=== PATIENT | female | born 1970 ===

== ENCOUNTER 2020-07-28 07:42 | Day surgery (SDC) | payer MEDICAID, SELFPAY ==
--- NOTE | 2020-07-28 08:08 | HO.ANESPROP2 ---
HPI - Anesthesia Eval Consult details Narrative: 49F for colonoscopy PMFSH Past Medical History Medical History Constipation Peterson-Danlos syndrome GERD (gastroesophageal reflux disease) History of pneumonia Nausea & vomiting Poor intravenous access PTSD (post-traumatic stress disorder) Surgical History Surgical History Hx of colonoscopy Social History Social History Advance Directives: No Advance Directives Information Provided: No Meds Allergies Allergy/AdvReac Type Severity Reaction Status Date / Time mold Allergy Unknown Uncoded 05/03/12 00:00 Home Medications Medication Instructions Recorded Confirmed Type cromolyn 2 ml INHALATION QID 07/23/20 07/23/20 History Exam Exam Date and Time: July 28, 2020 0808 Airway Mallampati Class: I TM Dist: >3cm Neck ROM: Full Loose/Missing/Broken Teeth: No Heart: rrr Lungs: nl Other: ao Assessment and Plan Assessment Anesthesia Assessment: Anesthesia Plan Discussed and Chart Reviewed Final Anesthetic Review NPO: Yes ASA Class: III Final Preanesthetic Review: No Changes in Pt Med Stat, Meds/Allgs Chart Reviewed, Consent Obtained/Reviewed and Anes Risks/Benef Reviewed Patient Risk: Intermediate Procedure Risk: Low Anesthetic Plan Anesthetic Plan: MAC: Disposition: Standard PACU
[2020-07-28 08:29] VITALS: BP 110/80; PULSE 79; RESP 18; TEMP 37.2; O2SAT 99
[2020-07-28 10:13] VITALS: BP 94/65; PULSE 90; RESP 12; TEMP 36.2; O2SAT 99
--- NOTE | 2020-07-28 10:18 | PM.OP ---
Brief Operative Note Date of Service: 07/28/20 Pre-op diagnosis: GERD, Screening Post-op diagnosis: other (Small hiatal hernia, mild gastritis, R/O Celiac disease, R/O EOE, colon polyp) Procedure: EGD with biopsies, Colonoscopy to cecum with biopsy and removal of polyp Surgeon: Lee Balbuena Anesthesia: MAC Estimated blood loss (mL): 4.0 Pathology: other (A. Descending duodenum B. Gastric antrum C. Esophagus at 25 cm D. Colon polyp at 60cm) Condition: stable Disposition: PACU
[2020-07-28 10:28] VITALS: BP 104/69; PULSE 79; RESP 16; TEMP 36.2; O2SAT 99
--- NOTE | 2020-07-28 10:50 | HO.POSTANES ---
Post Anesthesia Evaluation Post Anesthesia Evaluation Vital Signs: Vital Signs Temp Pulse Resp BP Pulse Ox 07/28/20 10:28 97.2 F 79 16 104/69 99 07/28/20 10:13 97.2 F 90 12 94/65 99 07/28/20 08:29 98.9 F 79 18 110/80 99 Anesthesia: Monitored Mental Status: Awake Pain Control: Satisfactory Nausea/Vomiting: None Hydration: Adequate Anesthesia-Related Issues: No Anes. Related Issues
--- NOTE | 2020-07-28 10:54 | OP_ITS ---
SURGEON: Lee Balbuena MD INDICATIONS: The patient presents for evaluation of intermittent gastroesophageal reflux, nausea, and vomiting, as well as colorectal cancer screening. Full consent has been obtained from her for this, including risks of bleeding and perforation. PREOPERATIVE DIAGNOSIS: Nausea, vomiting, gastroesophageal reflux, and colorectal cancer screening. POSTOPERATIVE DIAGNOSIS: Nausea, vomiting, gastroesophageal reflux, and colorectal cancer screening, small hiatal hernia, gastritis, rule out celiac disease, rule out eosinophilic esophagitis, small colon polyp, internal hemorrhoids. PROCEDURE PERFORMED: Esophagogastroduodenoscopy with biopsies and colonoscopy to the cecum with biopsy and removal of polyp. ESTIMATED BLOOD LOSS: COMPLICATIONS: ANESTHESIA: Monitored anesthesia care. ASSISTANTS: SPECIMENS: DESCRIPTION OF PROCEDURE: The patient was placed in the left lateral decubitus position. The Olympus video gastroscope was passed in the posterior oropharynx and upper esophagus under direct vision. The scope was passed slowly to the distal esophagus. The gastroesophageal junction appeared at 36 cm. This area appeared normal without any sign of esophagitis nor Damon's esophagus. There was a small hiatal hernia. The scope was advanced to pylorus and duodenum cannulated to the descending portion. The duodenum including the bulb appeared normal without mass or ulceration. Biopsies were obtained in the 2nd and 3rd portions of the duodenum. The scope withdrawn back in the stomach. The gastric antrum had some areas of erythema and edema, but no erosions or ulceration. There was good peristalsis. The scope was retroflexed visualizing the proximal stomach carefully, which appeared normal, without any sign of mass or ulceration. The scope was straightened. Biopsies were obtained from the gastric antrum. Scope was withdrawn back to the esophagus. The gastroesophageal junction appeared normal. The scope was withdrawn through the remainder of the esophagus, which appeared normal, without any sign of esophageal rings, esophagitis, nor any other mucosal abnormalities. Biopsies were obtained at 25 cm to rule out eosinophilic esophagitis. The scope was withdrawn from the patient. She was turned around for colonoscopy. The digital rectal exam revealed no abnormalities. The Olympus video pediatric colonoscope was entered into the rectum and advanced easily to the cecum. Once in the cecum, I did identify normal-appearing cecal pouch with appendiceal orifice and a normal-appearing ileocecal valve. The entire cecum and ileocecal valve appeared normal. There was transillumination of light deep in the right lower quadrant. The scope was slowly withdrawn assessing all mucosal surfaces carefully. Preparation was excellent. At 60 cm, was an approximately 4 mm polyp, which was biopsied and completely removed with cold biopsy forceps. I did not visualize any other polyps, colitis, nor angiodysplasia. In the rectum, scope was retroflexed visualizing minimal internal hemorrhoids, but no other pathology. The rectal mucosa appeared normal. The scope was straightened and withdrawn from the patient. She tolerated both procedures well and was returned to recovery area in stable condition. IMPRESSION: 1. Small hiatal hernia. 2. Mild gastritis. 3. Rule out celiac disease. 4. Rule out eosinophilic esophagitis. 5. Small colon polyp. 6. Internal hemorrhoids. PLAN: The results of the biopsies will be checked. If the colon polyp is a tubular adenoma, I would recommend a followup colonoscopy in 5 years. If it is only hyperplastic, I would recommend a followup colonoscopy in 10 years given no family history of first-degree relatives with colorectal cancer. She will be given a prescription for omeprazole to use as needed for reflux symptoms. If Helicobacter pylori is present on the gastric biopsies, I would not necessarily treat that at this time. She was advised to see me in several months for a followup visit. She was advised not to use any aspirin and NSAIDs for 1 week. This has been discussed with her significant other. MD ALBERT Nation/MARIYA / [phone] MTDD
== END 2020-07-28 10:55 | disposition home or self-care (01) ==
PROVIDERS: PCP Physician Assistant; Visit Provider Internal Medicine
PROC: (CPT 45380; principal; 2020-07-28 08:30)
DX: Z12.11 Encounter for screening for malignant neoplasm of colon (principal); D12.4 Benign neoplasm of descending colon; K64.8 Other hemorrhoids; K21.9 Gastro-esophageal reflux disease without esophagitis; K29.50 Unspecified chronic gastritis without bleeding; K44.9 Diaphragmatic hernia without obstruction or gangrene; I99.8 Other disorder of circulatory system; Q79.60 Ehlers-Danlos syndrome, unspecified; Z79.899 Other long term (current) drug therapy
CPT/HCPCS: 45380; 43239; 88305; 88342; J1100; J2405

== ENCOUNTER 2024-06-20 13:42 | Outpatient (AMB) | payer MEDICAID, SELFPAY ==
--- NOTE | 2024-06-20 14:02 | MHC.OFFVIS ---
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 Pt states about 3 weeks ago she was doing a quad stretch and since then has been having pain. Pt states in the beginning she was unable to sit due to the pain. Pt states the pain has gradually been getting better. Pt denies any previous surgeries or injections. 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 The patient was seen at [facility] ER on 05/27/24 due to right hip pain status post overstretching her quadriceps during exercise on 05/24/24. She received a Toradol injection and was prescribed Flexeril for pain. She was seen by her PCP on 05/27/24 for the same complaint. She described her pain as severe especially when going to the toilet or driving. X-rays of the right hip were obtained. She was recommended to use salonpas patches and lidocaine patches for pain. She was advised to take medication which was prescribed in the ER. PT was offered; however, she deferred due to not trusting PT with [facility]. While in the office today, the patient reports right hip pain. She also reports numbness and tingling sensation in the right knee. She confirms that the pain started after overstretching her quadriceps while exercising. She states initially she was unable to sit secondary to the pain. She mentions gradually improving right hip pain. She denies any previous surgeries or injection in the right hip. [facility] Medical History (Updated 06/20/24 @ 14:38 by Mihaela Ewing PA-C) Connective tissue disorder GERD (gastroesophageal reflux disease) Poor intravenous access History of pneumonia PTSD (post-traumatic stress disorder) Nausea & vomiting Constipation Peterson-Danlos syndrome Surgical History Hx of colonoscopy Social History Second Hand Smoke Exposure: Yes (FRIEND) Review of Systems Const All systems reviewed & are unremarkable except as noted in HPI and below Physical Exam Const General: cooperative and no acute distress Orientation/consciousness: patient oriented x3 Resp Effort & Inspection: normal respiratory effort and able to speak in complete sentences Cardio Peripheral pulses: Peripheral pulses 2+ throughout Skin General skin exam: no rashes or lesions noted Neuro General: patient oriented x3 Extrem Other: Right hip: Normal to inspection. No ecchymosis, erythema, or edema. full hip ROM in all planes. No tenderness to palpation over the greater trochanteric bursa. 5/5 strength with resisted hip flexion, knee extension, abduction, and abduction. Able to perform straight leg raise. NVI. Assessment & Plan Assessment & Plan (1) Peroneal nerve injury: Code(s): S84.10XA - Injury of peroneal nerve at lower leg level, unspecified leg, initial encounter Category: Medical Plan Ms. Laura is a 53-year-old female who presents in the office today as a new patient, for an evaluation of right hip pain. The patient was seen at [facility] ER on 05/27/24 due to right hip pain status post overstretching her quadriceps during exercise on 05/24/24. She received a Toradol injection and was prescribed Flexeril for pain. She was seen by her PCP on 05/27/24 for the same complaint. She described her pain as severe especially when going to the toilet or driving. X-rays of the right hip were obtained. She was recommended to use salonpas patches and lidocaine patches for pain. She was advised to take medication which was prescribed in the ER. PT was offered; however, she deferred due to not trusting PT with [facility]. While in the office today, the patient reports right hip pain. She also reports numbness and tingling sensation in the right knee. She confirms that the pain started after overstretching her quadriceps while exercising. She states initially she was unable to sit secondary to the pain. She mentions gradually improving right hip pain. She denies any previous surgeries or injection in the right hip. The patient complains of occasional deep groin pain near the hip flexor as well as hip flexor pain. She mentions ?tight band-like feeling? near the proximal to the patella along the anterior aspect of the quad. She is also experiencing numbness and tingling sensation in the right knee. I have placed a referral to Dr. Marshall for further evaluation and treatment of possible nerve irritation at the right lower extremity. Follow-up will be PRN, or sooner if needed. X-rays of the right hip which were obtained while in the office today and were reviewed by me, Mihaela Ewing PA-C, revealed: Negative for any acute fracture or dislocation. X-rays of the right hip, obtained on 05/27/24, revealed: No displaced fracture. Normal alignment. Normal joint space. Orders: Orders XR hip RT min 2V 06/20/24 M25.559 - Pain in unspecified hip Patient Instructions: Scribed by Maida Garza medical dir, for Mihaela Ewing PA-C on 06/20/24 at 2:39 pm EST. Coding Level of Care Code New Pt Level 3 (44589) Diagnoses Peroneal nerve injury S84.10XA
== END 2024-06-20 14:41 | disposition home or self-care (01) ==
PROVIDERS: PCP Physician Assistant; Visit Provider Physician Assistant
DX: S84.10XA Injury of peroneal nerve at lower leg level, unspecified leg, initial encounter (principal)
CPT/HCPCS: 99203

== ENCOUNTER 2024-06-20 13:42 | Outpatient (REF) | payer MEDICAID, SELFPAY | END 2024-06-20 13:43 | disposition home or self-care (01) | LOC: HO.HOSX 13:42 | PROVIDERS: PCP Physician Assistant; Visit Provider Physician Assistant | DX: S84.10XA Injury of peroneal nerve at lower leg level, unspecified leg, initial encounter (principal); M25.551 Pain in right hip; X58.XXXA Exposure to other specified factors, initial encounter; Y93.9 Activity, unspecified; Y92.9 Unspecified place or not applicable; Y99.9 Unspecified external cause status | CPT/HCPCS: 73502; 99212 ==

== ENCOUNTER 2024-07-25 11:10 | Outpatient (AMB) | payer MEDICAID, SELFPAY ==
--- NOTE | 2024-07-25 11:15 | MHC.OFFVIS ---
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 Patient her right hip dislocated and relocated. Patient states it is most painful to lift her right leg. Patient feels like certain movements aggravates the pain. Denies injuries or surgeries to the neck, back, or right hip. Allergies ondansetron [From Zofran] Adverse Reaction (Verified 07/25/24 11:17) Severe constipation mold Allergy (Unknown, Uncoded 07/25/24 11:17) Joint Pain HPI Comments Details: Previously seen by Orthopedics, refer to physiatry for further evaluation. History of Peterson Danlos, had seen flux tube attendant. Had right hip dislocation 1st week of May, while doing a standing hip flexion stretch. She thinks it already relocated before she had gone to see Urgent Care, and then to [facility] ER. No procedure done at those areas. She tends to sublux the right hip after 2015 related to a right foot injury, and she says she felt that she fractured SI but xrays done did not show fracture, per patient. Right hip would sublux every 2 months. Mentions that knee dislocates once a week, both sides. And that left hip subluxes also. Right now has band of numbness and paresthesias on distal quadriceps, medial thigh, right groin. After the injury, she had severe pain that she cannot sit without pain. 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 She wants to know what kind of exericises she can do. 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 Patient was appropriately conversant and oriented. MSK: No specific abnormalities found on inspection of the spine and all extremities. Lumbar ROM was full. Bilateral hip, knee and ankle ROM WNL. No ligamentous laxity or crepitance. No increased effusion. No atrophy on right thigh. No specific tenderness on quadriceps or a doctor tendons. No palpable mass. Straight-leg raising test negative. FABERE test indicated right groin pain. Piriformis test is negative. Scour test is negative. Strength is 5/5 in all muscle groups tested. No increased tone noted. Neurological: Neurologic examination of the upper and lower extremities was nonfocal with intact sensation, muscle stretch reflexes and without focal motor deficits . Gait is non-antalgic without loss of balance. Results Reviewed Results Reviewed: I independently reviewed the results of the following: Right hip x-ray shows preserved joint space. No official reading it. I reviewed records from the following: Orthopedics Assessment & Plan Assessment & Plan (1) Femoroacetabular impingement of right hip: Code(s): M25.851 - Other specified joint disorders, right hip Category: Medical (2) Labral tear of right hip joint: Code(s): S73.191A - Other sprain of right hip, initial encounter Category: Medical Qualifiers: Encounter type: initial encounter Qualified Code(s): S73.191A - Other sprain of right hip, initial encounter (3) Peterson-Danlos syndrome: Code(s): Q79.60 - Peterson-Danlos syndrome, unspecified Category: Medical Plan Given recurrent right hip subluxation, there is a risk for labral tear or femoroacetabular impingement. History of Peterson Danlos syndrome. Patient had undergone adequate conservative management including home exercises without improvement of condition. It would be reasonable to obtain further imaging such as MRI. An MRI would help rule out any serious condition, guide treatment and assess prognosis for recovery. Considering EMG to rule out femoral neuropathy. We will decide the need for this depending on MRI results. May continue exercises as long as within pain-free level. Assessment and plan discussed with patient, and patient was agreeable. All questions were answered thoroughly. Follow-up after MRI. Kandy Galloway MD, ARLENE Board Certified, [place] Board of Physical Medicine and Rehabilitation (ABPMR) Board Certified, [place] Board of Electrodiagnostic Medicine (ABEM) Orders: Orders MR hip RT wo con Today M25.851 - Other specified joint disorders, right hip, Q79.60 - Peterson-Danlos syndrome, unspecified, S73.191A - Other sprain of right hip, initial encounter Coding Level of Care Code New Pt Level 4 (14635) Diagnoses Femoroacetabular impingement of right hip M25.851 Tear of right acetabular labrum, initial encounter S73.191A Encounter type: initial encounter Peterson-Danlos syndrome Q79.60
[2024-07-25 11:16] VITALS: BMI 20.8
== END 2024-07-25 11:53 | disposition home or self-care (01) ==
PROVIDERS: PCP Physician Assistant; Visit Provider Physical Medicine & Rehabilitation
DX: M25.851 Other specified joint disorders, right hip (principal); S73.191A Other sprain of right hip, initial encounter; Q79.60 Ehlers-Danlos syndrome, unspecified
CPT/HCPCS: 99203

== ENCOUNTER → 2024-07-25 11:10 | Outpatient (BNVA) | payer MEDICAID, SELFPAY | PROVIDERS: PCP Physician Assistant; Visit Provider Physical Medicine & Rehabilitation | DX: M25.851 Other specified joint disorders, right hip (principal); S73.191A Other sprain of right hip, initial encounter; Q79.60 Ehlers-Danlos syndrome, unspecified | CPT/HCPCS: 99202 ==

== ENCOUNTER 2024-09-19 09:54 | Outpatient (AMB) | payer MEDICAID, SELFPAY ==
[2024-09-19 10:03] VITALS: BMI 20.8
--- NOTE | 2024-09-19 10:03 | A.OFFVIS_ITS ---
Vital Signs 09/19/24 10:03 Height 5 ft 5 in Weight 125 lb BMI 20.8 Intake Visit Reasons: OV-Right hip MRI review Intake Note: Fany is a 54 year old female who presents today for review of her right hip MRI results. Patient reports she is still experiencing right hip pain. Allergies ondansetron [From Zofran] Adverse Reaction (Verified 09/19/24 10:04) Severe constipation mold Allergy (Unknown, Uncoded 09/19/24 10:04) Joint Pain animal product Adverse Reaction (Unknown, Uncoded 09/19/24 10:09) Unknown HPI Comments Details: Previously seen by Orthopedics, refer to physiatry for further evaluation. History of Peterson Danlos, had seen plum packer. Had right hip dislocation 1st week of May, while doing a standing hip flexion stretch. She thinks it already relocated before she had gone to see Urgent Care, and then to [facility] ER. No procedure done at those areas. She tends to sublux the right hip after 2015 related to a right foot injury, and she says she felt that she fractured SI but xrays done did not show fracture, per patient. Right hip would sublux every 2 months. Mentions that knee dislocates once a week, both sides. And that left hip subluxes also. Reported a band of numbness and paresthesias on distal quadriceps, medial thigh, right groin. After the injury, she had severe pain that she cannot sit without pain. Here today to review MRI. 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 Patient was appropriately conversant and oriented. MSK: No specific abnormalities found on inspection of the spine and all extremities. No tenderness over SI joint, GT or lumbar paraspinals. No atrophy or signs of inflammation on right calf. Straight-leg raising test negative bilateral. FABERE test negative bilateral. Piriformis test is negative. Scour test is negative. Strength is 5/5 in all muscle groups tested. No increased tone noted. Gait is non-antalgic without loss of balance. Results Reviewed Results Reviewed: Ordering Physician: Mihaela Ewing PA-C Date of Service: 06/20/24 Procedure(s): XR hip RT min 2V Accession Number(s): [id number] cc: LUISA DUONG; Mihaela Ewing PA-C~ EXAMINATION: XR HIP RIGHT 3 VIEWS CLINICAL INFORMATION: Pain in unspecified hip M25.559, pelvis. COMPARISON: XR Right hip 03/02/2016 (report only). TECHNIQUE: Two views of the right and frontal view of the pelvis hip. FINDINGS: No fracture or dislocation is identified. No lytic or sclerotic bony lesion is identified. No periosteal reaction is noted. Joint spaces appear maintained. No soft tissue mass is identified. Ring-shaped, apparently man-made structures project over the mid lower pelvis, uncertain etiology and significance. Recommend clinical correlation. XR/XR hip RT min 2V IMPRESSION: No acute finding. Electronically signed by: Chacorta Walker MD 08/26/2024 04:39 PM [facility] EXAM: MR HIP WITHOUT CONTRAST UNILATERAL RIGHT CLINICAL INFORMATION: Patient with right hip pain. Patient with Peterson-Danlos syndrome. TECHNICAL INFORMATION: Multiplanar and multisequence MRI of the hip per departmental protocol. ENCOUNTER:?Initial COMPARISON:?None INTERPRETATION: Acetabular Femoral Joint: Left: The limited imaging of the joint demonstrates normal contour and bone marrow signal of the femoral head. The acetabulum is intact. No significant joint effusion is noted. No significant joint space narrowing is seen. Right: The femoral head has normal contour and bone marrow signal. There is no evidence of any fracture or avascular necrosis. There is no evidence of any joint space narrowing. Is mild bone marrow edema of the anterior inferior aspect of the femoral neck consistent with a stress response (image 12 of series 14, image 16 of series 11, image 11 of series 12). The acetabulum is intact. No significant joint effusion is seen. There is no evidence of any significant trochanteric bursitis. Labrum and Cartilage: The acetabular cartilage is intact with normal thickness. The labrum is intact with normal triangular contour. Muscles and Tendons: The gluteus medius and gluteus minimus tendons are intact at their trochanteric insertion. The visualized portions of the iliopsoas, quadriceps and hamstring tendons are intact. There is no evidence of any muscle edema or atrophy of the visualized muscles surrounding the hip joint. Pelvic Bony Structures: The sacroiliac joints are grossly intact. The pelvic crest is intact. The ischium is intact. The pubic symphysis and pubic rami are all grossly intact. Visualized Pelvic Viscera: The limited imaging of the pelvic viscera is grossly intact. The bladder is intact. The uterus is normal in size. A question of a pessary for iatrogenic device in the lower pelvis. Correlate with clinical history. There is no evidence of any significant free fluid or hematoma in the pelvis. CONCLUSION: 1. There is a focal stress response or bone contusion of the anterior inferior aspect of the right femoral neck. No other bone marrow edema or fractures seen in the right hip joint. 2. There is no evidence of any muscle edema, labral , tendon or ligamentous injury identified in the right hip joint. Assessment & Plan Assessment & Plan (1) Peterson-Danlos syndrome: Code(s): Q79.60 - Peterson-Danlos syndrome, unspecified Category: Medical (2) Right hip pain: Code(s): M25.551 - Pain in right hip Category: Medical Plan Discussed right hip MRI findings, which did not show/report acute fracture, labral tear or impingement. Femoral neck stress reaction possibly overuse or from previous episodes of hip subluxation. Exam is nonfocal today. Would recommend continuing home exercises, within pain-free levels. Continue to strengthen core, lumbar, gluteus, piriformis, hamstrings and quads. We can continue to watch her every 6 months. I also offered 2nd opinion with Dr. Daniel, which she defers for now. Assessment and plan discussed with patient, and patient was agreeable. All questions were answered thoroughly. Kandy Galloway MD, ARLENE Board Certified, [place] Board of Physical Medicine and Rehabilitation (ABPMR) Board Certified, [place] Board of Electrodiagnostic Medicine (ABEM) Coding Level of Care Code Est Pt Level 3 (84664) Diagnoses Peterson-Danlos syndrome Q79.60 Right hip pain M25.551
== END 2024-09-19 10:27 | disposition home or self-care (01) ==
PROVIDERS: PCP Physician Assistant; Visit Provider Physical Medicine & Rehabilitation
DX: Q79.60 Ehlers-Danlos syndrome, unspecified (principal); M25.551 Pain in right hip
CPT/HCPCS: 99213

== ENCOUNTER → 2024-09-19 09:54 | Outpatient (BNVA) | payer MEDICAID, SELFPAY | PROVIDERS: PCP Physician Assistant; Visit Provider Physical Medicine & Rehabilitation | DX: Q79.60 Ehlers-Danlos syndrome, unspecified (principal); M25.551 Pain in right hip | CPT/HCPCS: 99212 ==